=== PATIENT | male | born 1995 | race Caucasian/White ===

== ENCOUNTER 2018-03-18 00:52 | Emergency (ER) | payer MEDICAID, MEDICARE ==
[~2018-03-18] VITALS: Ht 190.5 cm; Wt 118.0 kg
[2018-03-18] MEDS ORDERED: ONDANSETRON 4MG ODT PO STA (01:35)
[2018-03-18] MEDS ORDERED: ACETAMINOPHEN 325MG TABLET PO ONE (01:45)
[2018-03-18] MEDS ORDERED: IBUPROFEN 600MG TABLET PO ONE (01:45)
[2018-03-18 02:06] LABS: HEMATOCRIT. 41.7 % (42.0-52.0); HEMOGLOBIN. 14.3 g/dL (14.0-18.0); MEAN CORPUSCULAR HEMOGLOBIN 30.4 pg (28.0-32.0); MEAN CORPUSCULAR VOLUME 88.6 fL (80.0-94.0); PLATELET 162 x1000/uL (130-400); RED BLOOD CELL COUNT 4.71 mill/uL (4.7-6.1); RED CELL DISTRIBUTION WIDTH 13.2 % (11.6-14.6)
[2018-03-18 02:09] LABS: CHLORIDE 105 mEq/L (98-107)
[2018-03-18 02:13] LABS: ETHANOL BLOOD < 10 mg/dL
[2018-03-18 02:40] LABS: PLATELET ESTIMATE NORMAL
[2018-03-18] MEDS ORDERED: SODIUM CHLORIDE 0.9% 1,000 ML IV ONE (02:50)
[2018-03-18 03:10] LABS: CLARITY URINE CLEAR (CLEAR); COLOR URINE YELLOW (YELLOW); KETONES URINE NEGATIVE (NEGATIVE); LEUKOCYTE ESTERASE URINE NEGATIVE (NEGATIVE); NITRITE URINE NEGATIVE (NEGATIVE); OCCULT BLOOD URINE NEGATIVE (NEGATIVE); PH URINE 6.5 (4.5-8.0); PROTEIN URINE NEGATIVE (NEGATIVE); SPECIFIC GRAVITY URINE 1.013 (1.005-1.030)
[2018-03-18 03:20] LABS: *AMPHETAMINES SCREEN URINE NEGATIVE (NEGATIVE); *BARBITURATES SCREEN URINE NEGATIVE (NEGATIVE); *BENZODIAZEPINES SCREEN URINE NEGATIVE (NEGATIVE); *COCAINE SCREEN URINE NEGATIVE (NEGATIVE)
[2018-03-18 03:21] LABS: CANNABINOID URINE SCREEN NEGATIVE (NEGATIVE); METHADONE URINE SCREEN NEGATIVE (NEGATIVE); OPIATES URINE SCREEN NEGATIVE (NEGATIVE); PHENCYCLIDINE URINE SCREEN NEGATIVE (NEGATIVE)
[2018-03-18 06:13] VITALS: BP 119/81
== END 2018-03-18 06:14 | disposition home or self-care (01) ==
LOC: ER 00:52
DX: R51 Headache (principal); R11.2 Nausea with vomiting, unspecified; R50.9 Fever, unspecified; F17.200 Nicotine dependence, unspecified, uncomplicated
CPT/HCPCS: 36415; 71045; 80053; 80305; 81003; 83605; 85025; 87804; 96360; 99285; G0482; J7030; Q0162; Z7610

== ENCOUNTER 2018-11-09 15:09 | Emergency (ER) | payer SELFPAY ==
[~2018-11-09] VITALS: Ht 190.5 cm; Wt 109.0 kg
[2018-11-09 18:39] VITALS: BP 129/81
== END 2018-11-09 18:39 | disposition home or self-care (01) ==
LOC: ER 17:07
DX: S01.511A Laceration without foreign body of lip, initial encounter (principal); W50.0XXA Accidental hit or strike by another person, initial encounter; Y93.89 Activity, other specified; Y92.252 Music hall as the place of occurrence of the external cause; F17.210 Nicotine dependence, cigarettes, uncomplicated
CPT/HCPCS: 99283